=== PATIENT | male | born 1980 | race Caucasian/White ===

== ENCOUNTER 2019-08-15 14:02 | Outpatient (RCR) | payer BC ==
[2019-08-18 14:01] LABS: SEMEN VOLUME 1.5 ML (1.5-5.0)
== END 2019-11-13 | disposition home or self-care (01) ==
LOC: LAB 14:02
PROVIDERS: ATTEND Family Medicine
DX: N46.9 Male infertility, unspecified (principal)
CPT/HCPCS: 89320

== ENCOUNTER 2019-09-18 20:31 | Outpatient (CLI) | payer BC | END 2019-09-19 05:55 | disposition home or self-care (01) | LOC: SLEEP 20:31 | PROVIDERS: ATTEND Family Medicine | DX: G47.33 Obstructive sleep apnea (adult) (pediatric) (principal); G47.00 Insomnia, unspecified; I10 Essential (primary) hypertension | CPT/HCPCS: 95811 ==

== ENCOUNTER 2023-08-10 09:57 | Outpatient (CLI) | payer OTHER | END 2023-08-10 10:09 | LOC: SLEEP 09:57 | PROVIDERS: ATTEND Internal Medicine Critical Care Medicine | DX: G47.33 Obstructive sleep apnea (adult) (pediatric) (principal) | CPT/HCPCS: G0399 ==